=== PATIENT | male | born 1975 | race Caucasian/White ===

== ENCOUNTER 2016-08-18 04:46 | Emergency (ER) | payer OTHER ==
[2016-08-18] MEDS ORDERED: Proparacaine 0.5% Ophth Soln 15 ML Bottle EYELF STA (05:14)
[2016-08-18] MEDS ORDERED: Erythromycin Base 0.5% Ophth Oint 1 GM Tube EYELF STA (05:14)
--- NOTE | 2016-08-18 05:38 | EDM.PDOC ---
ED HPI ENT - General Chief Complaint: ENT Problem Stated Complaint: IRRITANT IN LEFT EYE Time Seen by Provider: 08/18/16 05:00 Source of Information: Reports: Patient History Limitations: Reports: No limitations - History of Present Illness INITIAL COMMENTS - FREE TEXT/NARRATIVE: HISTORY AND PHYSICAL: History of present illness: [] Review of systems: As per history of present illness and below otherwise all systems reviewed and negative. Past medical history: As per history of present illness and as reviewed below otherwise noncontributory. Surgical history: As per history of present illness and as reviewed below otherwise noncontributory. Social history: No reported history of drug or alcohol abuse. Family history: As per history of present illness and as reviewed below otherwise noncontributory. Physical exam: HEENT: Atraumatic, normocephalic, pupils reactive, negative for conjunctival pallor or scleral icterus, mucous membranes moist, throat clear, neck supple, nontender, trachea midline. Lungs: Clear to auscultation, breath sounds equal bilaterally, chest nontender. Heart: S1S2, regular, negative for clicks, rubs, or JVD. Abdomen: Soft, nondistended, nontender. Negative for masses or hepatosplenomegaly. Negative for costovertebral tenderness. Pelvis: Stable nontender. Genitourinary: Deferred. Rectal: Deferred. Extremities: Atraumatic, negative for cords or calf pain. Neurovascular unremarkable. Neuro: Awake, alert, oriented. Cranial nerves II through XII unremarkable. Cerebellum unremarkable. Motor and sensory unremarkable throughout. Exam nonfocal. Diagnostics: [] Therapeutics: [] Impression: [] Plan: [] Definitive disposition and diagnosis as appropriate pending reevaluation and review of above. - Related Data Allergies/ADRs: Allergies Allergy/AdvReac Type Severity Reaction Status Date / Time No Known Allergies Allergy Verified 08/18/16 04:54 Home Meds: Home Meds Gentamicin [Garamycin 0.3% Ophth Soln] 1 bottle EYELF TID #1 bottle 08/18/16 [Rx ] Past Medical History - Past Health History Medical/Surgical History: Denies Medical/Surgical History - Infectious Disease History Infectious Disease History: Reports: Chicken pox Social & Family History - Family History Family Medical History: Noncontributory - Tobacco Use Smoking Status *Q: Never Smoker Second Hand Smoke Exposure: No - Caffeine Use Caffeine Use: Reports: Tea Caffeine Use Comment: 2drinks/day - Recreational Drug Use Recreational Drug Use: No ED ROS ENT - Review of Systems Review Of Systems: See Below (History of present illness) ED EXAM, ENT - Physical Exam Exam: See Below (History of present illness) Course - Vital Signs Last Recorded V/S: Last Vital Signs Temp 36.3 C 08/18/16 04:50 Pulse 76 08/18/16 04:50 Resp 18 08/18/16 04:50 BP 164/101 H 08/18/16 04:50 Pulse Ox 97 08/18/16 04:50 - Orders/Labs/Meds Meds: Medications Discontinued Medications Generic Name Dose Route Start Last Admin Trade Name Freq PRN Reason Stop Dose Admin Erythromycin 1 gm 08/18/16 05:14 08/18/16 05:20 Erythromycin 0.5% Ophth Oint EYELF 08/18/16 05:15 1 gm NOW STA Administration Proparacaine HCl 1 ml 08/18/16 05:14 08/18/16 05:20 Proparacaine 0.5% Ophth Soln EYELF 08/18/16 05:15 1 ml NOW STA Administration Departure - Departure Time of Disposition: 05:32 Disposition: Home, Self-Care 01 Condition: good Clinical Impression: Acute conjunctivitis, left eye Referrals: PCP,None [Primary Care Provider] - Forms: ED Department Discharge Additional Instructions: You have conjunctivitis which is the medical term for pinkeye. Most times this is caused by a viral infection and will get better on its own. Apply cool wet compresses for relief. Take ibuprofen 800 mg every 6 hours and Tylenol every 4 hours as needed for pain. Use antibiotic drops, 2 drops every 2 hours while awake and one quarter-inch of antibiotic ointment at bedtime. Be extremely careful about strict contact precautions and handwashing. This infection is highly contagious and easily spread. Follow up with your Dr. in 2 days for reevaluation. Return for new or severe symptoms, including loss of vision if your symptoms continue to worsen followup with your local creative/art director Dr. Fazal Basilio At [facility].
[2016-08-18 05:53] VITALS: BP 143/92
== END 2016-08-18 05:50 | disposition home or self-care (01) ==
LOC: MW.ED 04:46
DX: H10.32 Unspecified acute conjunctivitis, left eye (principal)
CPT/HCPCS: 99283; A9270